=== PATIENT | female | born 1990 | race Caucasian/White ===

== ENCOUNTER → 2020-04-23 | Outpatient (REF) | payer OTHER ==
[2020-04-23 14:13] LABS: HEMATOCRIT 38.9 % (36.0-47.0); HEMOGLOBIN 12.1 g/dl (12.0-15.5); MEAN CORPUSCULAR HEMOGLOBIN 26.2 pg (27.0-33.0); MEAN CORPUSCULAR HGB CONC 31.1 g/dl (32.0-36.5); MEAN CORPUSCULAR VOLUME 84.2 fl (80.0-96.0); PLATELET COUNT, AUTOMATED 365 10^3/uL (150-450); RED BLOOD COUNT 4.62 10^6/uL (4.00-5.40); WHITE BLOOD COUNT 6.3 10^3/uL (4.0-10.0)
[2020-04-23 15:45] LABS: HEPATITIS C VIRUS ABY INDEX 0.1 INDEX (<0.8)
[2020-04-23 15:46] LABS: HIV 1&2 SCREEN CENTAUR NEGATIVE (NEGATIVE)
== END ==
LOC: M PLALAB 10:39
PROVIDERS: ATTEND Advanced Practice Midwife
DX: Z34.01 Encounter for supervision of normal first pregnancy, first trimester (principal)

== ENCOUNTER → 2020-07-06 | Outpatient (CLI) | payer OTHER ==
--- NOTE | 2020-07-06 09:35 | REP ---
INDICATION: ANATOMY COMPARISON: None. TECHNIQUE: Transabdominal obstetrical ultrasound with color Doppler evaluation. FINDINGS: Examination demonstrates a single live intrauterine in cephalic presentation. motion is identified by technologist. Placenta is noted anterior and grade 1 without evidence for placenta previa or abruption. Amniotic fluid volume is normal. Cervix measures 3.7 cm in length and appears closed.. Gestational age by current measurements 19 weeks 2 days with NISHANT 11/28/2020. FHR equals 155 beats per minute. BPD: 4.5 cm 19 weeks 5 days HC: 16.5 cm 19 weeks 1 day AC: 13.8 cm 19 weeks 2 days FL: 3.0 cm 19 weeks 3 days HL: 2.9 cm 19 weeks 2 days HC/AC: 1.19 Estimated weight 285 grams (72ndpercentile). Anatomical assessment demonstrates normal structures including cranium, choroid plexus, cavum, facial features, lungs, four-chamber heart/ventricular outflow tracts, diaphragm, stomach, cord insertion/three-vessel cord, kidneys/bladder, spine, and extremities. IMPRESSION: 1. Single live intrauterine in cephalic presentation demonstrating appropriate estimated weight. 2. Limited evaluation of the posterior fossa due to positioning and motion. Remainder of the anatomical assessment is complete and normal. <Electronically signed by Kaden Gonzalez > 07/06/20 [id number]
== END ==
LOC: M WHC 07:56
PROVIDERS: ATTEND Advanced Practice Midwife
DX: Z34.02 Encounter for supervision of normal first pregnancy, second trimester (principal); Z36.89 Encounter for other specified antenatal screening; Z3A.19 19 weeks gestation of pregnancy

== ENCOUNTER → 2020-08-01 | Outpatient (CLI) | payer OTHER ==
--- NOTE | 2020-08-01 10:10 | REP ---
INDICATION: F/U ANATOMY-POSTERIOR FOSSA. COMPARISON: Comparison study 06 July 2020.. TECHNIQUE: Transabdominal obstetric sonography. FINDINGS: Scanning through the gravid uterus demonstrates a viable single intrauterine gestation in cephalic lie. motion is observed and heart rate is recorded at 156 beats per minute. A anterior placenta is seen, grade 1, without evidence of placenta previa. Closed cervical length is measured at 3.4 cm transabdominally. No extrauterine abnormality is observed. Amniotic fluid is subjectively normal. No anomaly is seen. Posterior fossa and other intracranial contents are seen today and felt to be unremarkable. cranium is normal. The following additional anatomic structures are identified today and felt to be unremarkable as well: Four-chamber heart with left and right ventricular outflow tract views, diaphragm, left-sided stomach, abdominal wall cord insertion, kidneys and urinary bladder, spine, three-vessel cord.. Biometry chart: BPD 5.7 cm, 23 weeks 3 days Head circumference 21.2 cm, 23 weeks 2 days Abdominal circumference 17.5 cm, 22 weeks 3 days Femur length 4.0 cm, 22 weeks 6 days Humeral length 3.6 cm, 22 weeks 4 days HC AC ratio normal 1.21 Cephalic index normal 0.74 Estimated weight 527 g, 1 lb 2 oz, 50th percentile for 22 weeks 4 days IMPRESSION: Viable single intrauterine gestation at 22 weeks 6 days by today's composite sonographic criteria. NISHANT by today's sonography November 29, 2020.. No complication identified. Expected gestational age estimate based on prior sonography is 22 weeks 4 days. NISHANT by prior sonography December 01, 2020. In conjunction with the previous study, anatomic survey is felt to be complete. <Electronically signed by Laz Larson > 08/01/20 1007
== END ==
LOC: M WHC 07:54
PROVIDERS: ATTEND Advanced Practice Midwife
DX: Z34.02 Encounter for supervision of normal first pregnancy, second trimester (principal); Z3A.22 22 weeks gestation of pregnancy

== ENCOUNTER → 2020-09-07 | Outpatient (REF) | payer OTHER ==
[2020-09-07 13:36] LABS: HEMATOCRIT 32.9 % (36.0-47.0); HEMOGLOBIN 10.5 g/dl (12.0-15.5); MEAN CORPUSCULAR HGB CONC 31.9 g/dl (32.0-36.5); MEAN CORPUSCULAR VOLUME 87.7 fl (80.0-96.0); PLATELET COUNT, AUTOMATED 287 10^3/uL (150-450); RED BLOOD COUNT 3.75 10^6/uL (4.00-5.40); WHITE BLOOD COUNT 9.1 10^3/uL (4.0-10.0)
== END ==
LOC: M PLALAB 09:50
PROVIDERS: ATTEND Advanced Practice Midwife
DX: Z34.02 Encounter for supervision of normal first pregnancy, second trimester (principal); Z36.89 Encounter for other specified antenatal screening

== ENCOUNTER → 2020-11-07 | Outpatient (REF) | payer OTHER | LOC: M SFHCWAGY 12:50 | PROVIDERS: ATTEND Advanced Practice Midwife | DX: O99.213 Obesity complicating pregnancy, third trimester (principal); E66.09 Other obesity due to excess calories; Z3A.36 36 weeks gestation of pregnancy | CPT/HCPCS: 87081; G0463 ==

== ENCOUNTER 2020-11-19 23:52 | Inpatient (IN) | payer OTHER ==
[~2020-11-19] VITALS: Ht 160 cm; Wt 96.8 kg
[2020-11-20] VITALS (20 sets, daily range): BP systolic 97–133; BP diastolic 54–95
[2020-11-20] MEDS ORDERED: PROMETHAZINE INJ 25 MG/ML VIAL (J2550) IV ONE (01:50)
[2020-11-20] MEDS ORDERED: BUTORPHANOL 2 MG/ML INJ (J0595) IV ONE (01:50)
[2020-11-20] MEDS ORDERED: ONDANSETRON 4MG/2ML VIAL IV SCH (02:00)
[2020-11-20 02:41] LABS: HEMATOCRIT 39.5 % (36.0-47.0); MEAN CORPUSCULAR HEMOGLOBIN 28.4 pg (27.0-33.0); MEAN CORPUSCULAR HGB CONC 32.9 g/dl (32.0-36.5); MEAN CORPUSCULAR VOLUME 86.2 fl (80.0-96.0); PLATELET COUNT, AUTOMATED 262 10^3/uL (150-450); RED BLOOD COUNT 4.58 10^6/uL (4.00-5.40); WHITE BLOOD COUNT 10.9 10^3/uL (4.0-10.0)
[2020-11-20] MEDS ORDERED: FENTANYL 2MCG/ML ROPIVACAINE 0.2% IN 0.9% NACL 100ML IVBAG As Ordered ONE (02:54)
[2020-11-20] MEDS ORDERED: LIDOCAINE 1% MDV 20ML VIAL INFIL PRN (03:10)
[2020-11-20] MEDS ORDERED: LACTATED RINGER'S 1000 ML IV STA (03:10)
[2020-11-20] MEDS ORDERED: OXYTOCIN DRIP 30 UNITS in IV 1 EA IV PRN (03:10)
[2020-11-20] MEDS ORDERED: CARBOPROST TROMETHAMINE 250 MCG/ML AMP IM PRN (03:10)
[2020-11-20] MEDS ORDERED: LR 1,000 ML IV SCH (03:10)
[2020-11-20] MEDS ORDERED: TRANEXAMIC ACID INJection 1,000 MG in NS 100 ML IV PRN (03:10)
[2020-11-20] MEDS ORDERED: METHYLERGONOVINE MALEATE 0.2 MG/ML VIAL (J2210) IM PRN (03:10)
--- NOTE | 2020-11-20 03:30 | HPEPDOC ---
Obstetrical History & Physical General Date of Admission Nov 20, 2020 at 01:24 Primary Care Physician: CRISTEL HARTLEY CNM History of Present Illness Abi is a 30-year-old female who is a at 38.2 weeks gestation with an NISHANT of 12/01/20 based off of her first trimester ultrasound. She initiated care i n her first trimester of at [facility]. Her has been uncomplicated. She presents to L&D with complaints of contractions that are every 3-4 minutes. She reports active movement. She denies leaking of fluid or vaginal bleeding. She spontaneously ruptured clear fluid at 0125. 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 ) Family History Significant Family History: No pertinent family hx Social History Marital Status: Family situation: Spouse/partner home Psychosocial History: No pertinent psych hx * Smoker: non-smoker Alcohol: Denies Drugs: denies Abuse Violence Screening Have you been hit/kicked/slapp: No Have you been sexually assault: No Allergies Coded Allergies: No Known Allergies (Unverified , 11/20/20) Physical Examination Physical Examination GENERAL: Alert and oriented times three. BREAST: . ABDOMEN: Gravid and non-tender to touch. FETUS: Is vertex (VTX) by sterile vaginal examination (SVE), fetus is vertex (VTX) by [place]on. LUNGS: Clear to auscultation (CTA). EXTREMITIES: 1+ pitting edema. No clonus. Deep tendon reflexes (DTRs) + 2. Vital Signs/I&O Vital Signs Date Time Temp Pulse Resp B/P (MAP) Pulse Ox O2 Delivery O2 Flow Rate FiO2 11/20/20 02:11 18 11/20/20 00:06 98.6 85 131/81 (98) Laboratory Data 24H LABS Laboratory Tests 2 11/20/20 01:28: Serology Scanned Report Hepatitis B Testing 11/20/20 02:21: Nucleated Red Blood Cells % (auto) 0.0 CBC/BMP Laboratory Tests 11/20/20 02:21 Urine Culture: No Growth Pertinent Laboratoy Data Blood Type: O+ RBC Antibody Screen: Negative HIV: Negative Hepatitis B: Negative Hepatitis C: Negative Rapid Plasma Reagin: Nonreactive Rubella: Immune Chlamydia/Gonorrhea: Negative Group B Streptococcus: Negative Glucose Tolerance Test: 124 Vaginal Examination Dilation: 5 cm Effacement: 90% Station: -3 Presentation: Cephalic presentation Assessment Heart Rate (FHR): 130 Variability: Moderate Accelerations: Positive Decelerations: Early Tocometer Contractions: Yes Frequency: regular Multi-drug resistant Organism: No history of MDRO Assessment/Plan Assessment IUP at 38.2 weeks gestation active labor Category I FHR tracing GBS negative Plan Admit to L&D. OOB ad kevin. Diet: clears. Group B Streptococcus (GBS) negative. Labs and intravenous (IV) per unit protocol. Anesthesia to be notified per patient's request for an epidural. Lactated Ringers (LR): Bolus 800 mL prior to epidural, then at 125 mL/hr. Anticipate cervical change and . C-S as appropriate. CRISTEL HARTLEY CNM Nov 20, 2020 03:30
[2020-11-20] MEDS ORDERED: ONDANSETRON 4MG/2ML VIAL IV PRN (03:50)
[2020-11-20] MEDS ORDERED: NALOXONE INJ 0.4MG/1ML VIAL (J2310 PER 1MG) IV PRN (03:50)
[2020-11-20] MEDS ORDERED: diphenhydrAMINE 50MG/ML VIAL (J1200) IV PRN (03:50)
[2020-11-20] MEDS ORDERED: EPIDURAL COMMENT XX SCH (03:50)
[2020-11-20] MEDS ORDERED: ePHEDrine SULFATE 25 MG/5 ML(5MG/ML) SYRINGE IV PRN (03:50)
[2020-11-20] MEDS ORDERED: FENTANYL/ROPIVACAINE/NACL BAG 100 ML EPIDURAL SCH (03:50)
[2020-11-20] MEDS ORDERED: EPIDURAL/PCA KEYS XX PRN (03:50)
[2020-11-20] MEDS ORDERED: REFRIGERATOR IV KEYS XX PRN (03:50)
[2020-11-20] MEDS ORDERED: LACTATED RINGER'S 1000 ML IV PRN (03:50)
--- NOTE | 2020-11-20 03:53 | IPNPDOC ---
Obstetrical Progress Note Date of Service Nov 20, 2020 Subjective Getting more comfortable with her epidural. Objective Vital Signs Date Time Temp Pulse Resp B/P (MAP) Pulse Ox O2 Delivery O2 Flow Rate FiO2 11/20/20 02:11 18 11/20/20 00:06 98.6 85 131/81 (98) Assessment Heart Rate (FHR): 120 Variability: Moderate Accelerations: Positive Decelerations: Early Heart Rate Tracing: Category I Tocometer Contractions: Yes Frequency: regular, every 1-3 min. Sterile Vaginal Examination Dilation: 7 cm (7-8 cm) Effacement (%): 100% Station: 0 (moderate amount of vaginal bleeding noted. No clots. ) Postion/Presentation: Cephalic presentation Assessment and Plan Age: 30 : 1 Term: 0 Pre-term: 0 Abortions: 0 Livin EGA at Admission: 38.2 Status: Reassuring Group B Streptococcus: Negative Anticipate: Vaginal Delivery Additional Comments Reviewed potential for bleeding to be related to how fast cervix has change or possible placental abruption. Reviewed that baby looks good and we can continue with labor. Will notify Dr. Chowdhury of extra vaginal bleeding. CRISTEL HARTLEY CNM Nov 20, 2020 03:53
[2020-11-20 05:55] LABS: CORD GAS ABE V -3.4; CORD GAS HCO3 V 22.5 MEQ/L; CORD GAS O2 SAT V 72.1 %; CORD GAS PCO2 V 43.5 mmHg; CORD GAS PH V 7.332 UNITS; CORD GAS PO2 V 30.2 mmHg; CORD GAS TCO2 V 23.9 MEQ/L
--- NOTE | 2020-11-20 06:41 | DNPDOC ---
[facility] Delivery Note Delivery Note DATE OF DELIVERY: 11/20/20 at 0543 PREDELIVERY DIAGNOSIS: 38-2/7 weeks' gestation and labor. POST DELIVERY DIAGNOSIS: Delivered. PROCEDURE: Spontaneous vaginal delivery. VAT TENDER: Cristel Arrington CNM, WHNP ANESTHESIA: epidural. ESTIMATED BLOOD LOSS: 400 mL. FINDINGS: 7 pounds 8 ounces; 3400 grams; female , Score 8/9, partial placental abruption, bradycardia. DELIVERY SUMMARY: Abi is a 30-year-old female who is now a who presented to L&D in active labor. She spontaneously ruptured clear fluid at 0115. She progressed quickly and a moderate amount of vaginal bleeding was noted. She progressed to fully dilated at 0527. Due to vaginal bleeding and bradycardia in the s, Dr. Chowdhury was notified to come into hospital for delivery. She pushed to a living male in the ROCÍO position with restitution to ROT. The anterior shoulder delivered with ease and the corpus immediately followed. The baby was placed on the maternal abdomen active and crying. The cord was clamped after 2 minutes and cut by the patient. A 3 -vessel cord was noted. Venous cord gas was obtained. Arterial gasThe placenta delivered spontaneously and intact at 0553. The placenta was inspected and found to have a marginal area that appeared to have a small abruption. Uterine hemostasis was achieved via rapid infusion of IV Pitocin and fundal massage. The vagina, cervix, and perineum was inspected and found to have a first degree perineal laceration that extended into the left labia and a periurethral abrasion. The first degree perineal laceration was repaired with a 3.[address]-1. Mom plans to breast feed. They are naming her Dao. Both mom and baby are in stable condition. All counts of instruments and sponges are correct. Item Value Date Time Cord Venous Blood pH 7.332 UNITS 11/20/20550 Cord Venous Blood PCO2 43.5 mmHg 11/20/20550 Cord Venous Blood PO2 30.2 mmHg 11/20/20550 Cord Venous Blood HCO3 22.5 MEQ/L 11/20/20550 Cord Venous Blood Total CO2 23.9 MEQ/L 11/20/20550 Cord Venous Base Excess (Actual) -3.4 11/20/20550 Cord Venous Base Excess (Standard) 21.0 MEQ/L 11/20/20 0551 Cord Venous Blood Oxygen Saturation 72.1 % 11/20/20 0551 CRISTEL [facility] Nov 20, 2020 06:41
[2020-11-20] MEDS ORDERED: ACETAMINOPHEN TAB 650MG DOSE (2X325MG) PO PRN (06:45)
[2020-11-20] MEDS ORDERED: METHYLERGONOVINE MALEATE 0.2 MG TAB PO PRN (06:45)
[2020-11-20] MEDS ORDERED: MEASLES,MUMPS,RUBELLA VACCINE INJ (MMR-II) (90707) SC SCH (06:45)
[2020-11-20] MEDS ORDERED: ANUSOL HC CREAM 30GM TOP PRN (06:45)
[2020-11-20] MEDS ORDERED: DIBUCAINE 1% OINTMENT 30GM TOP PRN (06:45)
[2020-11-20] MEDS ORDERED: ACETAMINOPHEN 500 MG TAB PO PRN (06:45)
[2020-11-20] MEDS ORDERED: IBUPROFEN 600MG TAB PO PRN (06:45)
[2020-11-20] MEDS ORDERED: RHOGAM 300 MCG (1500 IU) INJ (J2790) IM SCH (06:45)
[2020-11-20] MEDS: PRENATAL VITAMINS CHEWABLE TABLET PO SCH (09:00)
[2020-11-20] MEDS: IBUPROFEN 800 MG TAB PO PRN (20:24)
[2020-11-20] MEDS: DOCUSATE SODIUM 100MG CAPSULE PO PRN (20:24)
--- NOTE | 2020-11-21 05:49 | IPNPDOC ---
Progress Note Date of Service: Nov 21, 2020 Day#: 1 Progress Note SUBJECT: Status post . She has been ambulating, voiding spontaneously without issue and tolerating regular diet. Lochia decreasing/minimal. Pain is well-controlled. Denies headache, visual changes, right upper quadrant pain, shortness breath or chest pain. OBJECTIVE: VITAL SIGNS: Within normal limits, afebrile. Alert and oriented times three. Abdomen: Fundus firm at U-2. Soft, NTTP. ASSESSMENT: Status post uncomplicated spontaneous vaginal delivery. Vitals within normal limits, afebrile, hemodynamically stable with no evidence of infection. PLAN: Discharge to home tomorrow Tylenol and Motrin for pain. Routine instructions/precautions reviewed. Routine PP visit in 6 weeks in clinic. VS, I&O, 24H, Armande Vital Signs/I&O Vital Signs Date Time Temp Pulse Resp B/P (MAP) Pulse Ox O2 Delivery O2 Flow Rate FiO2 11/20/20 18:00 98.2 71 16 113/56 (75) 99 Room Air I&O- Last 24 Hours up to 6 AM 11/21/20 06:00 Intake Total 560 ml Output Total 600 ml Balance -40 ml Laboratory Data 24H LABS Laboratory Tests 2 11/20/20 05:51: Cord Venous Blood pH 7.332, Cord Venous Blood PCO2 43.5, Cord Venous Blood PO2 30.2, Cord Venous Blood HCO3 22.5, Cord Venous Blood Total CO2 23.9, Cord Venous Base Excess (Actual) -3.4, Cord Venous Base Excess (Standard) 21.0, Cord Venous Blood Oxygen Saturation 72.1 FAITH PETER DO Nov 21, 2020 05:49
[2020-11-21 06:00] VITALS: BP 103/56
[2020-11-21] MEDS: PRENATAL VITAMINS CHEWABLE TABLET PO SCH (08:16)
[2020-11-21] MEDS: DOCUSATE SODIUM 100MG CAPSULE PO PRN ×2 (08:16→20:04)
[2020-11-21] MEDS: IBUPROFEN 800 MG TAB PO PRN ×2 (12:16→22:28)
[2020-11-21 18:09] VITALS: BP 132/63
[2020-11-22 06:11] VITALS: BP 96/54
[2020-11-22 07:55] VITALS: BP 108/65
[2020-11-22] MEDS: PRENATAL VITAMINS CHEWABLE TABLET PO SCH (07:56)
[2020-11-22] MEDS: DOCUSATE SODIUM 100MG CAPSULE PO PRN (07:56)
== END 2020-11-22 12:10 | disposition home or self-care (01) | DRG 807 ==
LOC: M LDO 23:52 → M LDI 11-20 01:24 → M OBS 11-20 08:45
PROVIDERS: ADMIT Advanced Practice Midwife; ATTEND Advanced Practice Midwife
PROC: 10E0XZZ Delivery of Products of Conception, External Approach (ICD-10-PCS; principal; 2020-11-20)
PROC: 0HQ9XZZ Repair Perineum Skin, External Approach (ICD-10-PCS; 2020-11-20)
DX: O45.93 Premature separation of placenta, unspecified, third trimester (principal); Z37.0 Single live birth; Z3A.38 38 weeks gestation of pregnancy; O76 Abnormality in fetal heart rate and rhythm complicating labor and delivery; O77.0 Labor and delivery complicated by meconium in amniotic fluid

== ENCOUNTER → 2021-03-28 | Outpatient (REF) | payer OTHER | LOC: M SFHCWAGY 19:09 | PROVIDERS: ATTEND Advanced Practice Midwife | DX: Z12.4 Encounter for screening for malignant neoplasm of cervix (principal) | CPT/HCPCS: 87624; G0123; G0463 ==

== ENCOUNTER → 2022-01-01 | Outpatient (CLI) | payer OTHER ==
[2022-01-01 15:55] LABS: BASO % 0.5 % (0.0-1.0); EOS # 0.1 10^3/uL (0.0-0.5); HEMATOCRIT 40.6 % (36.0-47.0); HEMOGLOBIN 13.8 g/dl (12.0-15.5); LYMPH # 1.6 10^3/uL (1.5-5.0); LYMPH % 20.4 % (24.0-44.0); MEAN CORPUSCULAR HEMOGLOBIN 30.3 pg (27.0-33.0); MONO # 0.4 10^3/uL (0.0-0.8); MONO % 5.1 % (2.0-8.0); NEUTROPHILS # 5.6 10^3/uL (1.5-8.5); NEUTROPHILS % 72.7 % (36.0-66.0); PLATELET COUNT, AUTOMATED 348 10^3/uL (150-450); RED BLOOD COUNT 4.56 10^6/uL (4.00-5.40); WHITE BLOOD COUNT 7.6 10^3/uL (4.0-10.0)
[2022-01-01 17:26] LABS: HEPATITIS C VIRUS ABY INDEX 0.1 INDEX (<0.8); HIV 1&2 SCREEN CENTAUR NEGATIVE (NEGATIVE)
[2022-01-01 18:05] LABS: GC DNA AMPLIFICATION NEGATIVE (NEGATIVE)
== END ==
LOC: M PLALAB 11:25
PROVIDERS: ATTEND Advanced Practice Midwife
DX: Z34.81 Encounter for supervision of other normal pregnancy, first trimester (principal)

== ENCOUNTER → 2022-02-27 | Outpatient (CLI) | payer OTHER | LOC: M WHC 08:15 | PROVIDERS: ATTEND Advanced Practice Midwife | DX: Z34.82 Encounter for supervision of other normal pregnancy, second trimester (principal); Z3A.19 19 weeks gestation of pregnancy ==

== ENCOUNTER → 2022-04-11 | Outpatient (CLI) | payer OTHER ==
[2022-04-11 18:23] LABS: HEMATOCRIT 37.6 % (36.0-47.0); HEMOGLOBIN 12.2 g/dl (12.0-15.5); MEAN CORPUSCULAR HEMOGLOBIN 30.3 pg (27.0-33.0); MEAN CORPUSCULAR HGB CONC 32.4 g/dl (32.0-36.5); MEAN CORPUSCULAR VOLUME 93.3 fl (80.0-96.0); PLATELET COUNT, AUTOMATED 302 10^3/uL (150-450); RED BLOOD COUNT 4.03 10^6/uL (4.00-5.40); WHITE BLOOD COUNT 9.1 10^3/uL (4.0-10.0)
== END ==
LOC: M PLALAB 14:22
PROVIDERS: ATTEND Advanced Practice Midwife
DX: O99.212 Obesity complicating pregnancy, second trimester (principal); E66.9 Obesity, unspecified; Z3A.00 Weeks of gestation of pregnancy not specified

== ENCOUNTER 2022-06-09 09:22 | Outpatient (CLI) | payer OTHER ==
[~2022-06-09] VITALS: Ht 160 cm; Wt 96.2 kg
[2022-06-09 10:03] VITALS: BP 103/55
[2022-06-09] MEDS ORDERED: PHEN26CR TOP (10:19)
[2022-06-09] MEDS ORDERED: PRENTAB9 PO (10:19)
[2022-06-09] MEDS ORDERED: LIDOCAINE 5% OINT 30GM TUBE TOP PRN ×2 (11:30→11:44)
[2022-06-09] MEDS ORDERED: ANUSOL HC CREAM 30GM TOP PRN ×2 (11:30→11:44)
== END 2022-06-09 12:20 | disposition home or self-care (01) ==
LOC: M LDO 09:22
PROVIDERS: ATTEND Advanced Practice Midwife
DX: O22.43 Hemorrhoids in pregnancy, third trimester (principal); Z3A.34 34 weeks gestation of pregnancy
CPT/HCPCS: 59025; G0378; G0463

== ENCOUNTER → 2022-06-18 | Outpatient (REF) | payer OTHER ==
[~2022-06-18] MED LIST: PHEN26CR TOP; PRENTAB9 PO
== END ==
LOC: M SFHCWAGY 14:57
PROVIDERS: ATTEND Advanced Practice Midwife
DX: O22.43 Hemorrhoids in pregnancy, third trimester (principal)

== ENCOUNTER → 2023-02-02 | Outpatient (CLI) | payer OTHER ==
[~2023-02-02] MED LIST changes: +ACET-683 PO; +COLA100C5 PO; +IBUP-1022 PO; +NORE0.353 PO
== END ==
LOC: M RAD 11:00
PROVIDERS: ATTEND Otolaryngology
DX: C05.0 Malignant neoplasm of hard palate (principal)

== ENCOUNTER → 2023-06-18 | Outpatient (REF) | payer OTHER | LOC: M SFHCWAGY 15:25 | PROVIDERS: ATTEND Advanced Practice Midwife | DX: Z12.4 Encounter for screening for malignant neoplasm of cervix (principal) | CPT/HCPCS: 87624; G0123 ==

== ENCOUNTER → 2023-12-30 | Outpatient (CLI) | payer OTHER ==
[2023-12-30 13:44] LABS: HEMATOCRIT 40.3 % (36.0-47.0); HEMOGLOBIN 13.8 g/dl (12.0-15.5); MEAN CORPUSCULAR HEMOGLOBIN 30.1 pg (27.0-33.0); MEAN CORPUSCULAR HGB CONC 34.2 g/dl (32.0-36.5); MEAN CORPUSCULAR VOLUME 87.8 fl (80.0-96.0); PLATELET COUNT, AUTOMATED 327 10^3/uL (150-450); RED BLOOD COUNT 4.59 10^6/uL (4.00-5.40)
[2023-12-30 14:39] LABS: HIV 1&2 SCREEN NEGATIVE (NEGATIVE)
[2023-12-30 14:47] LABS: HEPATITIS C VIRUS ABY INDEX < 0.02 INDEX (<0.8)
== END ==
LOC: M PLALAB 10:21
PROVIDERS: ATTEND Advanced Practice Midwife
DX: O09.291 Supervision of pregnancy with other poor reproductive or obstetric history, first trimester (principal); Z3A.00 Weeks of gestation of pregnancy not specified

== ENCOUNTER → 2024-01-28 | Outpatient (REF) | payer OTHER ==
[2024-01-28 15:00] LABS: GC DNA AMPLIFICATION NEGATIVE (NEGATIVE)
== END ==
LOC: M SFHCWAGY 13:07
PROVIDERS: ATTEND Advanced Practice Midwife
DX: O09.291 Supervision of pregnancy with other poor reproductive or obstetric history, first trimester (principal)

== ENCOUNTER → 2024-03-15 | Outpatient (CLI) | payer OTHER | LOC: M WHC 08:38 | PROVIDERS: ATTEND Advanced Practice Midwife | DX: O09.292 Supervision of pregnancy with other poor reproductive or obstetric history, second trimester (principal); Z3A.21 21 weeks gestation of pregnancy; O28.3 Abnormal ultrasonic finding on antenatal screening of mother ==

== ENCOUNTER → 2024-04-27 | Outpatient (CLI) | payer OTHER ==
[2024-04-27 11:52] LABS: HEMATOCRIT 35.2 % (36.0-47.0); HEMOGLOBIN 11.5 g/dl (12.0-15.5); MEAN CORPUSCULAR HEMOGLOBIN 29.6 pg (27.0-33.0); MEAN CORPUSCULAR HGB CONC 32.7 g/dl (32.0-36.5); MEAN CORPUSCULAR VOLUME 90.5 fl (80.0-96.0); PLATELET COUNT, AUTOMATED 294 10^3/uL (150-450); RED BLOOD COUNT 3.89 10^6/uL (4.00-5.40); WHITE BLOOD COUNT 7.9 10^3/uL (4.0-10.0)
[2024-04-27 12:20] LABS: GLUCOSE CHALLENGE TEST 1 HOUR 100 MG/DL (LESS THAN 140)
[2024-04-27 12:55] LABS: HIV 1&2 SCREEN NEGATIVE (NEGATIVE)
[2024-04-27 13:03] LABS: HEPATITIS C VIRUS ABY INDEX < 0.02 INDEX (<0.8)
== END ==
LOC: M PLALAB 07:48
PROVIDERS: ATTEND Advanced Practice Midwife
DX: O09.292 Supervision of pregnancy with other poor reproductive or obstetric history, second trimester (principal)

== ENCOUNTER → 2024-05-03 | Outpatient (CLI) | payer OTHER | LOC: M WHC 08:20 | PROVIDERS: ATTEND Advanced Practice Midwife | DX: O09.293 Supervision of pregnancy with other poor reproductive or obstetric history, third trimester (principal); Z3A.28 28 weeks gestation of pregnancy ==

== ENCOUNTER → 2024-05-20 | Outpatient (REF) | payer OTHER ==
[2024-05-20 15:30] LABS: GC DNA AMPLIFICATION NEGATIVE (NEGATIVE)
== END ==
LOC: M SFHCWAGY 12:43
PROVIDERS: ATTEND Advanced Practice Midwife
DX: O09.292 Supervision of pregnancy with other poor reproductive or obstetric history, second trimester (principal)

== ENCOUNTER → 2024-06-30 | Outpatient (REF) | payer OTHER | LOC: M PLALAB 16:24 | PROVIDERS: ATTEND Advanced Practice Midwife | DX: O09.293 Supervision of pregnancy with other poor reproductive or obstetric history, third trimester (principal) ==

== ENCOUNTER → 2024-07-04 | Outpatient (CLI) | payer OTHER | LOC: M WHC 08:56 | PROVIDERS: ATTEND Advanced Practice Midwife | DX: O09.293 Supervision of pregnancy with other poor reproductive or obstetric history, third trimester (principal); Z3A.37 37 weeks gestation of pregnancy; O35.03X0 Maternal care for (suspected) central nervous system malformation or damage in fetus, choroid plexus cysts, not applicable or unspecified ==